=== PATIENT | male | born 1940 | race Caucasian/White ===

== ENCOUNTER 2020-10-22 11:45 | Inpatient (IN) | payer MEDICARE, OTHER, SELFPAY ==
[2020-10-22] VITALS (51 sets, daily range): BP systolic 123–168; BP diastolic 51–110; PULSE 87–144; RESP 20–40; TEMP 36.8–38.2; O2SAT 85–97
--- NOTE | 2020-10-22 11:30 | RT.EKG_ITS ---
APPROVED REPORT Exam: Resting ECG Patient Location: E HR:118 bpm ECG Measurements Heart Rate 118 AXIS CO 166 P 47 QRSd 109 QRS -26 QT 324 T 120 QTc 453 Conclusion Sinus tachycardia Incomplete left bundle branch block
--- NOTE | 2020-10-22 12:00 | DI.CT_ITS ---
EXAM: CT ABDOMEN PELVIS W CLINICAL HISTORY: Diarrhea, fever, malaise, HX IBD TECHNIQUE: COMPARISON: No exams were available for comparison FINDINGS: CT examination of the abdomen and pelvis was performed with bolus infusion 100 cc of Omnipaque 350. Images obtained through the lung bases are unremarkable. Note is made of coronary artery calcificati ons. There appears to be mild hepatic steatosis. No focal hepatic lesion identified. Spleen is unremarka ble. Gallbladder and bile ducts are CT normal. Pancreas appears intact. There are multiple bilateral large renal cysts and a few smaller cysts the kidneys are noted as well. No hydronephrosis or nephrolithiasis. Adrenals are unremarkable in appearance bilaterally. Abdominal aorta and major branch vessels appear intact with mild atheromatous calcifications at multi ple sites. No abdominal aortic aneurysm. No significant abdominal wall hernia seen. No abdominal or pelvic adenopathy. There is is probable wall thickening of the cecum and ascending colon. Mild wall thickening of desce nding colon may be present as well, this is dose somewhat uncertain finding due to under distention d escending colon. No evidence of diverticulitis. No evidence of obstruction. Moderate amount of fec al material noted in the rectum. Urinary bladder is mildly thick-walled and in associated with an enlarged prostate this may represent mild chronic bladder outlet obstruction. IMPRESSION: Findings suggesting colitis, probably involving ascending colon and possibly involving descending co elisabeth. No evidence of obstruction or perforation. Incidental multiple large renal cysts noted. Probable hepatic steatosis. RADIATION DOSE DELIVERED: 1,398.64mGy.cm Total DLP
--- NOTE | 2020-10-22 12:16 | W.ED.GENAD ---
Discharge Plan Disposition Patient Disposition: [facility] INPATIENT Condition: Stable Discharge Details Chief Complaint: Nausea/Vomit/Diar Clinical Impression: Colitis, Fever Primary Care Provider: Rea Macias ED Provider: Deshaun Wooten Home Meds and New Rx's Prescriptions: No Action multivitamin Tablet 1 tab PO DAILY RF: 0 oxazepam 10 mg Capsule 10 mg PO HS PRN PRNRF: 0 amlodipine 5 mg Tablet 5 mg PO DAILY RF: 0 acetaminophen 500 mg Tablet 1,000 mg PO Q6H PRNRF: 0 metoprolol tartrate 50 mg Tablet 50 mg PO HS RF: 0 ibuprofen [IBU-200] 200 mg Tablet 200 mg PO Q6H PRNRF: 0 magnesium 250 mg Tablet 500 mg PO DAILY RF: 0 mupirocin 2 % Ointment 1 applic TOPICAL TID RF: 0 losartan 100 mg Tablet 100 mg PO DAILY RF: 0 cholecalciferol (vitamin D3) 25 mcg (1,000 unit) Capsule 25 mcg PO DAILY RF: 0 omega 3-vym-pkk-fish oil 900-1,400 mg Capsule,Delayed Release(Dr/Ec) 1 cap PO DAILY RF: 0 Medical Decision Making <Rai Daniel MD - Last Filed: 10/22/20 13:53> 72-year-old male states he has a history of irritable bowel disease. He states he ate ribs on this weekend and then has developed 2 days of diarrhea with generalized weakness, poor p.o. intake and lightheadedness. He noted a fever to 101 at home. He arrives ER via EMS with temp 36.8, pulse 119, pressure 147/51. He has a history of irritable bowel disease. Differential diagnosis includes gastroenteritis, dehydration, electrolyte abnormality, peritoneal irritation. Patient IV access established, fluid resuscitation initiated with normal saline. Referred for laboratory analysis and CT images. Laboratories note a white count of 7, hematocrit 44, platelets 171. Sodium 135, potassium 3.7, 99, bicarb 25, BUN 19, creatinine 1.0, glucose 132, slight elevation of ALT of 68, AST 28, total bili 0.8. Troponin negative. CT images show some mild wall thickening of the ascending colon and cecum, consistent with acute colitis. No abscess or free air. Note of renal cysts. Patient started to feel some improvement after fluids. Given his daily dose of amlodipine and trial of liquids by mouth. <Deshaun Wooten DO - Last Filed: 10/22/20 16:38> Patient was signed out to me by my colleague Dr. Rai Daniel. Please refer to his HPI, physical exam assessment and plan. At time of signout pending reassessment after fluids. CT scan shows evidence of colitis, patient has no white count, however he was febrile here. After fluids the patient remains mildly tachycardic at 109. He still has mild abdominal tenderness in the right lower quadrant and right mid abdominal region. No signs of appendicitis on CT per radiology. With the patient's age, risk factors, still mild tachycardia with fever I do feel that he would best benefit from admission and antibiotic treatment. Will give Cipro Flagyl, we have drawn blood cultures. We will do a Covid swab. Still pending PCR. Discussed the case with Dr. Aranda her, he agrees with the assessment and plan. I will place bridging orders on his behalf. I have extensively reviewed the treatment plan with the patient. I have addressed all patient concerns at this time. I have also discussed the plan with the admitting physician and they agree with the current assessment and plan and have agreed to assume responsibility for the patient. All parties demonstrate verbal understanding and agreement with our assessment and plan at this time. The documentation in this chart was dictated using [employer] dictation software. Please excuse any dictation errors. HPI <Rai Daniel MD - Last Filed: 10/22/20 13:53> General Mode of arrival: EMS. Date/Time Provider Initiated Documentation: 10/22/20 12:01. Limitations to Documentation: no limitations. Information obtained by: patient and EMS. History of Present Illness 80 year old M presents to the emergency department with the chief complaint of Weakness and diarrhea, described as moderate, Quality is described as dull, and is localized to the abdomen. Patient reports no radiation. Patient started experiencing this day(s) and it has been constant. No relieving factors improve symptom(s), No exacerbating factors reported . Patient notes fever/chills and weakness; denies chest pain, cough and syncope. Patient did receive the following treatments prior to arrival, none Related Data Home Medications Medication Instructions Recorded Confirmed acetaminophen 1,000 mg PO Q6H PRN 10/22/20 10/22/20 amlodipine 5 mg PO DAILY 10/22/20 10/22/20 cholecalciferol (vitamin D3) 25 mcg PO DAILY 10/22/20 10/22/20 ibuprofen [IBU-200] 200 mg PO Q6H PRN 10/22/20 10/22/20 losartan 100 mg PO DAILY 10/22/20 10/22/20 magnesium 500 mg PO DAILY 10/22/20 10/22/20 metoprolol tartrate 50 mg PO HS 10/22/20 10/22/20 multivitamin 1 tab PO DAILY 10/22/20 10/22/20 mupirocin 1 applic TOPICAL TID 10/22/20 10/22/20 omega 3-fyv-hux-fish oil 1 cap PO DAILY 10/22/20 10/22/20 oxazepam 10 mg PO HS PRN PRN 10/22/20 10/22/20 Allergies Allergy/AdvReac Type Severity Reaction Status Date / Time Penicillins Allergy Unverified 10/22/20 12:01 General Stated Complaint: Nausea/Vomit/Diar NICOLE: 3 Review of Systems <Rai Daniel MD - Last Filed: 10/22/20 13:53> Narrative: Did not take morning medications. Has otherwise recently been well. Received 2 COVID-19 immunizations, relates symptoms began after eating ribs on Wednesday. History of IBS. 6 systems reviewed and otherwise negative PFSH <Rai Daniel MD - Last Filed: 10/22/20 13:53> Social History Smoking risk assessment performed?: No Alcohol Intake: current Alcohol Intake frequency: 0-2 drinks per day Drug use: Never Substance use type: does not use Do you feel safe at home: Yes Do you feel safe in your relationship?: Yes Exam <Rai Daniel MD - Last Filed: 10/22/20 13:53> Narrative Exam Narrative: GEN: awake, alert, oriented 3. Pleasant, well groomed, interactive. HEAD: Normocephalic, atraumatic ENT: Mucous membranes dry, oropharynx unremarkable, External ear exam unremarkable EYES: PERRL, EOMI NECK: Full ROM, no RAYMUNDO, no menigismus CHEST/RESP: Nontender, clear to auscultation bilateral, no wheeze/rhonchi/rales CARDIOVASCULAR: Regular and tachycardic no murmur, rub brigido. 2+ Rad pulse bilateral ABDOMEN: Soft, nontender, no mass. +Bowel sounds EXT: Full ROM, no edema, no rash Neuro: Grossly normal neurologic exam, conversant, interactive. Psych: Speech fluent, thoughts congruent, affect normal Course <Rai Daniel MD - Last Filed: 10/22/20 13:53> Vital Signs Vital signs: Vital Signs Temperature 36.8 C 10/22/20 11:56 Pulse 119 H 10/22/20 11:56 Respiratory Rate 31 H 10/22/20 11:56 Blood Pressure 147/51 H 10/22/20 11:56 Pulse Oximetry 95 10/22/20 11:56 Temperature 36.8 C 10/22/20 11:56 Temperature Source Temporal Artery Scan 10/22/20 11:56 Pulse 119 H 10/22/20 11:56 Respiratory Rate 31 H 10/22/20 11:56 Blood Pressure 147/51 H 10/22/20 11:56 Pulse Oximetry 95 10/22/20 11:56 Oxygen Delivery Method Room Air 10/22/20 11:56 Oxygen Flow Rate 0 10/22/20 11:56 Pain Level 0 10/22/20 11:56 Sign Out <Rai Daniel MD - Last Filed: 10/22/20 13:53> Sign Out Data: Sign Out Comment: Re-eval after fluids Last updated by Rai Daniel MD at 10/22/20 15:02
[2020-10-22 12:30] LABS: Abs Immature Grans 0.03 10^3/uL (0.0-0.06); Absolute Basophil Count 0.01 10^3/uL (0.0-0.2); Absolute Lymphocyte Count 0.58 10^3/uL (1.2-3.4); Absolute Monocyte Count 0.42 10^3/uL (0.1-0.8); Absolute Neutrophil Count 6.17 10^3/uL (1.2-6.7); Basophils % 0.1; HGB 15.1 g/dL (13.5-17.5); Immature Grans % 0.4; MCH 32.8 pg (27.0-33.0); MCHC 34.3 % (32.0-36.0); MCV 95.7 fL (80-95); MPV 11.2 fL (8.0-11.0); Monocytes % 5.8; Neutrophils % 85.7; Nucleated RBC 0 %; Platelet Count 171 10^3/uL (130-400); RDW 11.9 % (11.8-14.1); RDW-SD 41.4 fL; WBC 7.21 10^3/uL (4.4-10.8)
[2020-10-22] MEDS: Normal Saline 1,000 ML 1000 ML IV ×2 (12:44→14:18)
[2020-10-22 13:05] LABS: ALT 68 U/L (16-63); AST 28 U/L (15-37); Alkaline Phosphatase 84 U/L (46-116); Anion Gap 10.9 mmol/L (3-11); BUN 19 mg/dL (7-18); Bilirubin, Total 0.8 mg/dL (0.2-1.0); CO2 25.1 mmol/L (21.0-32.0); Calcium 8.9 mg/dL (8.5-10.1); Chloride 99 mmol/L (98-107); Glucose 132 mg/dL (74-106); Magnesium 1.9 mg/dL (1.8-2.4); Potassium 3.7 mmol/L (3.5-5.1); Sodium 135 mmol/L (136-145); Total Protein 8.5 g/dL (6.4-8.2); Troponin I < 0.05 ng/mL (<0.06)
[2020-10-22] MEDS: Omnipaque 350 MG/ML 100 ML BTL IJ (13:30)
[2020-10-22] MEDS: Normal Saline - Diluent 50 ML VIAL IV (13:31)
[2020-10-22] MEDS: amLODIPine 5 MG TAB PO (14:01)
[2020-10-22] MEDS: Acetaminophen 500 MG TAB (14:24)
[2020-10-22 16:36] LABS: Source Nasal/Nares
[2020-10-22] MEDS: CIPROFLOXACIN 400 MG/200 ML BAG 200 MG IVPB (17:10)
--- NOTE | 2020-10-22 17:21 | W.PM.HP.N ---
Date of service: 10/22/20 Time of Service: 17:21 Assessment and Plan Assessment and plan (1) Colitis: Status: Acute Assessment and plan: started on flagyl and cipro. cdiff pending admitted for IV hydration and further management. (2) Fever: Status: Acute Assessment and plan: cultures pending. (3) Hypertension: Status: Chronic Assessment and plan: continue home medication and monitor. adjust as needed. discussed with Dr Watts History of Present Illness History of Present Illness Chief Complaint: nausea Narrative: 72-year-old male states he has a history of irritable bowel disease. He states he ate ribs on this weekend and then has developed 2 days of diarrhea with generalized weakness, poor p.o. intake and lightheadedness. He noted a fever to 101 at home. He arrives ER via EMS with temp 36.8, pulse 119, pressure 147/51. He has a history of irritable bowel disease. Differential diagnosis includes gastroenteritis, dehydration, electrolyte abnormality, peritoneal irritation. Patient IV access established, fluid resuscitation initiated with normal saline. Referred for laboratory analysis and CT images. Laboratories note a white count of 7, hematocrit 44, platelets 171. Sodium 135, potassium 3.7, 99, bicarb 25, BUN 19, creatinine 1.0, glucose 132, slight elevation of ALT of 68, AST 28, total bili 0.8. Troponin negative. CT images show some mild wall thickening of the ascending colon and cecum, consistent with acute colitis. No abscess or free air. Note of renal cysts. Patient started to feel some improvement after fluids. Review of Systems All systems reviewed & are unremarkable except as noted in HPI and below PFSH Social History Smoking risk assessment performed?: No Alcohol Intake: current Alcohol Intake frequency: 0-2 drinks per day Drug use: Never Substance use type: does not use Do you feel safe at home: Yes Do you feel safe in your relationship?: Yes Meds Home Medications and Allergies Allergies Allergy/AdvReac Type Severity Reaction Status Date / Time Penicillins Allergy Unverified 10/22/20 12:01 Home Medications Medication Instructions Recorded Confirmed Type acetaminophen 1,000 mg PO Q6H PRN 10/22/20 10/22/20 History amlodipine 5 mg PO DAILY 10/22/20 10/22/20 History cholecalciferol (vitamin D3) 25 mcg PO DAILY 10/22/20 10/22/20 History ibuprofen [IBU-200] 200 mg PO Q6H PRN 10/22/20 10/22/20 History losartan 100 mg PO DAILY 10/22/20 10/22/20 History magnesium 500 mg PO DAILY 10/22/20 10/22/20 History metoprolol tartrate 50 mg PO HS 10/22/20 10/22/20 History multivitamin 1 tab PO DAILY 10/22/20 10/22/20 History mupirocin 1 applic TOPICAL TID 10/22/20 10/22/20 History omega 2-fao-fpg-fish oil 1 cap PO DAILY 10/22/20 10/22/20 History oxazepam 10 mg PO HS PRN PRN 10/22/20 10/22/20 History Exam Narrative Exam Narrative: GEN: awake, alert, oriented 3. Pleasant, well groomed, interactive. HEAD: Normocephalic, atraumatic ENT: Mucous membranes dry, oropharynx unremarkable, External ear exam unremarkable EYES: PERRL, EOMI NECK: Full ROM, no RAYMUNDO, no menigismus CHEST/RESP: Nontender, clear to auscultation bilateral, no wheeze/rhonchi/rales CARDIOVASCULAR: Regular and tachycardic no murmur, rub brigido. 2+ Rad pulse bilateral ABDOMEN: Soft, nontender, no mass. +Bowel sounds EXT: Full ROM, no edema, no rash Neuro: Grossly normal neurologic exam, conversant, interactive. Psych: Speech fluent, thoughts congruent, affect normal Results Labs Result diagrams: 10/23/20 07:50 10/22/20 17:05 Labs: Laboratory Results - last 24 hr 10/22/20 10/22/20 10/22/20 11:22 11:22 16:29 WBC 7.21 RBC 4.60 Hgb 15.1 Hct 44.0 MCV 95.7 H MCH 32.8 MCHC 34.3 RDW 11.9 Plt Count 171 MPV 11.2 H Immature Gran % 0.4 Neutrophils % 85.7 Lymphocytes % 8.0 Monocytes % 5.8 Eosinophils % 0.0 Basophils % 0.1 Nucleated RBC % 0 Absolute Neutrophils 6.17 Absolute Lymphocytes 0.58 L Absolute Monocytes 0.42 Absolute Eosinophils 0.00 Absolute Basophils 0.01 Sodium 135 L Potassium 3.7 Chloride 99 Carbon Dioxide 25.1 Anion Gap 10.9 BUN 19 H Creatinine 1.0 Estimated GFR/1.73 m2 >= 60.00 Glucose 132 H Calcium 8.9 Magnesium 1.9 Total Bilirubin 0.8 AST 28 ALT 68 H Alkaline Phosphatase 84 Troponin I < 0.05 Total Protein 8.5 H Albumin 4.0 COVID-19 Source Nasal/nares Last Vital Signs Temp 37.5 C 10/22/20 16:24 Pulse 110 H 10/22/20 16:24 Resp 40 H 10/22/20 16:50 BP 139/82 10/22/20 16:24 Pulse Ox 96 10/22/20 16:50 COVID-19 Screening Have you, or household traveled for leisure in last 14 days?: No Had IN PERSON contact w/suspected or confirmed C-19 person: No
--- NOTE | 2020-10-22 17:28 | NUR.NOTE ---
Nursing Note: Brenna [phone]
[2020-10-22 18:09] LABS: Anion Gap 10.2 mmol/L (3-11); BUN 15 mg/dL (7-18); CO2 26.8 mmol/L (21.0-32.0); CREATININE 0.9 mg/dL (0.70-1.30); Calcium 8.4 mg/dL (8.5-10.1); Chloride 102 mmol/L (98-107); Glucose 115 mg/dL (74-106); Sodium 139 mmol/L (136-145)
[2020-10-22] MEDS: Normal Saline 1,000 ML 150 ML IV (18:57)
[2020-10-22] MEDS: Ibuprofen 200 MG TAB PO (18:57)
[2020-10-22 19:42] LABS: COVID-19 PCR Negative (Negative)
[2020-10-22] MEDS: metroNIDAZOLE 500 MG/100 ML BAG 100 MG IVPB (22:55)
[2020-10-22] MEDS: Metoprolol 50 MG TAB PO (22:56)
[2020-10-22] MEDS: Oxazepam 10 MG CAP PO (22:56)
[2020-10-22] MEDS: Melatonin 3 MG TAB 6 MG PO (22:56)
[2020-10-23] MEDS: Normal Saline 1,000 ML 150 ML IV (02:15)
[2020-10-23 02:35] VITALS: BP 148/88; PULSE 85; RESP 16; TEMP 37.4; O2SAT 94
[2020-10-23] MEDS: metroNIDAZOLE 500 MG/100 ML BAG 100 MG IVPB ×2 (03:54→09:56)
[2020-10-23] MEDS: CIPROFLOXACIN 400 MG/200 ML BAG 200 MG IVPB (05:16)
[2020-10-23 06:38] LABS: C Diff PCR Negative (Negative)
[2020-10-23 07:32] VITALS: BP 140/83; PULSE 91; RESP 18; TEMP 36.2; O2SAT 91
[2020-10-23 08:17] LABS: Abs Immature Grans 0.01 10^3/uL (0.0-0.06); Absolute Basophil Count 0.01 10^3/uL (0.0-0.2); Absolute Eosinophil Count 0.02 10^3/uL (0.0-0.7); Absolute Monocyte Count 0.52 10^3/uL (0.1-0.8); Absolute Neutrophil Count 3.67 10^3/uL (1.2-6.7); Basophils % 0.2; Eosinophils % 0.4; HCT 37.4 % (40.0-50.0); HGB 12.6 g/dL (13.5-17.5); Immature Grans % 0.2; Lymphocytes % 17.5; MCH 32.7 pg (27.0-33.0); MCHC 33.7 % (32.0-36.0); MCV 97.1 fL (80-95); MPV 10.6 fL (8.0-11.0); Monocytes % 10.1; Neutrophils % 71.6; Nucleated RBC 0 %; Platelet Count 131 10^3/uL (130-400); RBC 3.85 10^6/uL (4.36-5.78); RDW 12.1 % (11.8-14.1); RDW-SD 43.8 fL; WBC 5.13 10^3/uL (4.4-10.8)
[2020-10-23] MEDS: Cholecalciferol (Vitamin D3) 1,000 UNIT TAB 1000 UNITS PO (08:22)
[2020-10-23] MEDS: Omega-3 Fatty Acids 1000 MG CAP PO (08:22)
[2020-10-23] MEDS: Multivitamin TAB 1 TAB PO (08:22)
[2020-10-23] MEDS: Losartan 50 MG TAB 100 MG PO (08:22)
[2020-10-23] MEDS: Magnesium Oxide 400 MG TAB PO (08:22)
[2020-10-23] MEDS: amLODIPine 5 MG TAB PO (08:22)
--- NOTE | 2020-10-23 10:04 | INITIAL_ITS ---
- If Service Date Differs Date of service: 10/23/20 Time of Service: 10:04 Care Management Initial Assess REASON FOR HOSPITALIZATION:: Colitis PAST MEDICAL HISTORY/PAST SURGICAL HISTORY:: No significant medical history listed. PREVIOUS FUNCTIONAL STATUS/SOCIAL/FAMILY SUPPORTS:: Robert lives in [place] with his , Brenna. He does not have children, but his has two adult children, and one grandchild. He is retired now, but worked in sales and management. He enjoys traveling, especially to [place] where he has relatives that he visits. He likes to cook, as well. He is independent at baseline. CURRENT FUNCTIONAL STATUS:: Robert was lying in bed when CM met with him. He reported that he is feeling better today, but still has diarrhea. He stated that he would like to return home, if possible. He stated that he does not have any services, and does not feel that he needs anything at home, as he is independent. He discussed how he likes to cook, and feels that he may need to lose weight. CM offered to have nutrition meet with him, which he declined. He reported that he is in contact with his , and he will update her once he knows the plan. CM will continue to follow. ADVANCE DIRECTIVES:: On file, Brenna () listed as agent. Has patient been provided with info about the portal/API?: Yes Did the patient sign up for the portal?: No CODE STATUS:: Full Code INSURANCE COVERAGE / FINANCIAL ISSUES:: [facility]/ [facility] CURRENT HOME/COMMUNITY SERVICES/EQUIPMENT:: No current services or equipment. PRIMARY CARE PHYSICIAN:: Dr. Heather Macias POTENTIAL DISCHARGE NEEDS:: Evaluations for further needs, follow up a ppointments PATIENT/FAMILY EDUCATION NEEDS:: Review discharge instructions regarding activity levels and medications, discussion of self care needs and goals of care. ANTICIPATED BARRIERS TO DISCHARGE:: None identified. TRANSPORTATION:: Via private vehicle by his . PLAN:: Anticipate Robert will return home via private vehicle when medically cleared. His will drive him home. He will follow up with his PCP and discharge plan of care. CM will continue to follow.
[2020-10-23 10:52] VITALS: BP 133/75; PULSE 96; RESP 18; TEMP 37; O2SAT 95
[2020-10-23] MEDS: Normal Saline Flush 10 ML SYR IVP (11:06)
--- NOTE | 2020-10-23 12:01 | DSE_ITS ---
Documented by User: Anna Gomez NP 10/23/20 12:16 Date of service: 10/23/20 Time of Service: 12:01 DS: Diagnosis Discharge Diagnosis (1) Colitis: Status: Acute (2) Fever: Status: Acute (3) Hypertension: Status: Chronic Discharge Plan Disposition Patient Disposition: HOME Condition: Stable Discharge Details Reason For Visit: COLITIS Admit Date/Time: 10/22/20 16:35 Admit Provider: Rodger Watts Attending Provider: Rodger Watts Primary Care Provider: Rea Macias Hospital Course Hospital Course: This is a 80 year old male with history of irritable bowel disease who presented to the ED with c/o diarrhea, weakness and fever. He attributes his symptoms to eating ribs over the weekend. His Cdiff was negative and labs unremarkable. he was given IV fluids and started on cipro and flagyl with improvement in his symptoms. he remained afebrile overnight and was tolerating PO fluids well. his diarrhea was improving. he is hemodynamicaly stable and safe for discharge to home. he will continue 5 days of cipro/flagyl and will f/u if symptoms worsen. discharge discussed with DR Watts Home Meds and New Rx's Prescriptions: New ciprofloxacin HCl [Cipro] 500 mg tablet 500 mg PO BID Qty: 9 RF: 0 metronidazole [Flagyl] 500 mg tablet 500 mg PO TID Qty: 14 RF: 0 mupirocin 2 % ointment 1 applic topical BID Qty: 15 RF: 0 Continued multivitamin Tablet 1 tab PO DAILY RF: 0 oxazepam 10 mg Capsule 10 mg PO HS PRN PRNRF: 0 amlodipine 5 mg Tablet 5 mg PO DAILY RF: 0 acetaminophen 500 mg Tablet 1,000 mg PO Q6H PRNRF: 0 metoprolol tartrate 50 mg Tablet 50 mg PO HS RF: 0 ibuprofen [IBU-200] 200 mg Tablet 200 mg PO Q6H PRNRF: 0 magnesium 250 mg Tablet 500 mg PO DAILY RF: 0 mupirocin 2 % Ointment 1 applic TOPICAL TID RF: 0 losartan 100 mg Tablet 100 mg PO DAILY RF: 0 cholecalciferol (vitamin D3) 25 mcg (1,000 unit) Capsule 25 mcg PO DAILY RF: 0 omega 0-cqj-hhi-fish oil 900-1,400 mg Capsule,Delayed Release(Dr/Ec) 1 cap PO DAILY RF: 0 Discharge Instructions Instructions: Colitis (ED) Additional Instructions: finish antibiotic as directed. drink at least 6-8 glasses of water daily to stay well hydrated. return sooner for new or worsening symptoms. Stand Alone Forms: Nursing Discharge Form Referrals: Rea Macias [Primary Care Provider] - (Call for follow up appt for one to two weeks) Activity:: Activity as Tolerated Equipment/Supplies:: No Equipment Needed Diet:: As Tolerated Discharge Orders Discharge Orders: Discharge Order (Routine); Ordered 10/23/20 Ordered By: Anna Gomez DS: Summary Time Spent with Patient providing and/or coordinating discharge services: Less than 30 minutes Status at Discharge Functional status at discharge: independent ambulation Overall status at discharge: patient is progressing back to baseline Mental Status: mental status grossly normal Speech and Movement: speech and movement normal Mood: congruent mood Affect: normal affect Exam Narrative Exam Narrative: GEN: awake, alert, oriented 3. Pleasant, well groomed, interactive. HEAD: Normocephalic, atraumatic ENT: Mucous membranes moist, oropharynx unremarkable NECK: supple, no JVD CHEST/RESP: clear to auscultation bilateral, respirations even and unlabored CARDIOVASCULAR: Regular rate and rhythm no murmur, ABDOMEN: round, Soft, nontender, no masses appreciated. +Bowel sounds EXT: Full ROM, no edema, no rash Neuro: Grossly normal neurologic exam, conversant, interactive. Psych: mood and affect normal Psych Mental Status: mental status grossly normal Speech and Movement: speech and movement normal Mood: congruent mood Affect: normal affect DS: Data Vitals/I&O Vitals and I&O: Vital Signs Temperature 37.0 C 10/23/20 10:52 Temperature Source Tympanic 10/23/20 10:52 Pulse 96 H 10/23/20 10:52 Pulse Rhythm Regular 10/23/20 11:33 Pulse 106 H 10/22/20 17:20 Respiratory Rate 18 10/23/20 10:52 Respiratory Effort Non-Labored 10/23/20 11:33 Respiratory Depth Normal 10/23/20 11:33 Respiratory Pattern Normal 10/23/20 11:33 Blood Pressure 133/75 10/23/20 10:52 Blood Pressure Mean 87 10/22/20 17:18 Pulse Oximetry 95 10/23/20 10:52 Oxygen Delivery Method Room Air 10/23/20 10:52 Oxygen Flow Rate 0 10/23/20 10:52 Pain Level 0 10/23/20 02:35 Intake & Output 10/22/20 10/23/20 10/23/20 23:59 11:59 23:59 Intake Total 1500 / 1600 0 / 1920 Balance 1500 / 1600 1919 / 192 Weight 90.718 kg 105.8 kg Intake: IV 1000 / 1100 1200 / 1200 Oral 500 / 500 720 / 720 Other: Urine Color Yellow Urine Appearance Clear Clear Stool Size Moderate Stool Characteristics Liquid Liquid Brown Voiding Methods Toilet Diaper Incontinent Data Completed and Pending Labs on day of discharge: Labs from last 24 hours 10/23/20 10/23/20 10/22/20 07:50 02:30 17:05 WBC 5.13 RBC 3.85 L Hgb 12.6 L D Hct 37.4 L MCV 97.1 H MCH 32.7 MCHC 33.7 RDW 12.1 Plt Count 131 MPV 10.6 Immature Gran % 0.2 Neutrophils % 71.6 Lymphocytes % 17.5 Monocytes % 10.1 Eosinophils % 0.4 Basophils % 0.2 Nucleated RBC % 0 Absolute Neutrophils 3.67 Absolute Lymphocytes 0.90 L Absolute Monocytes 0.52 Absolute Eosinophils 0.02 Absolute Basophils 0.01 Sodium 139 Potassium 4.0 Chloride 102 Carbon Dioxide 26.8 Anion Gap 10.2 BUN 15 Creatinine 0.9 Estimated GFR/1.73 m2 >= 60.00 Glucose 115 H Calcium 8.4 L Magnesium Total Bilirubin AST ALT Alkaline Phosphatase Troponin I Total Protein Albumin Stl C.difficile Tox PCR Negative COVID-19 Source SARS-CoV-2 (PCR) 10/22/20 10/22/20 10/22/20 16:29 16:22 11:22 WBC 7.21 RBC 4.60 Hgb 15.1 Hct 44.0 MCV 95.7 H MCH 32.8 MCHC 34.3 RDW 11.9 Plt Count 171 MPV 11.2 H Immature Gran % 0.4 Neutrophils % 85.7 Lymphocytes % 8.0 Monocytes % 5.8 Eosinophils % 0.0 Basophils % 0.1 Nucleated RBC % 0 Absolute Neutrophils 6.17 Absolute Lymphocytes 0.58 L Absolute Monocytes 0.42 Absolute Eosinophils 0.00 Absolute Basophils 0.01 Sodium Potassium Chloride Carbon Dioxide Anion Gap BUN Creatinine Estimated GFR/1.73 m2 Glucose Calcium Magnesium Total Bilirubin AST ALT Alkaline Phosphatase Troponin I Total Protein Albumin Stl C.difficile Tox PCR Cancelled COVID-19 Source Nasal/nares SARS-CoV-2 (PCR) Negative 10/22/20 11:22 WBC RBC Hgb Hct MCV MCH MCHC RDW Plt Count MPV Immature Gran % Neutrophils % Lymphocytes % Monocytes % Eosinophils % Basophils % Nucleated RBC % Absolute Neutrophils Absolute Lymphocytes Absolute Monocytes Absolute Eosinophils Absolute Basophils Sodium 135 L Potassium 3.7 Chloride 99 Carbon Dioxide 25.1 Anion Gap 10.9 BUN 19 H Creatinine 1.0 Estimated GFR/1.73 m2 >= 60.00 Glucose 132 H Calcium 8.9 Magnesium 1.9 Total Bilirubin 0.8 AST 28 ALT 68 H Alkaline Phosphatase 84 Troponin I < 0.05 Total Protein 8.5 H Albumin 4.0 Stl C.difficile Tox PCR COVID-19 Source SARS-CoV-2 (PCR) 10/22/20 16:55 Blood Blood Culture - Pending 10/22/20 16:55 Blood Blood Culture - Pending Preliminary micro results at discharge 10/22/20 16:55 Blood Culture - Pending Blood 10/22/20 16:55 Blood Culture - Pending Blood [facility] Social History Smoking risk assessment performed?: No Alcohol Intake: current Alcohol Intake frequency: 0-2 drinks per day Drug use: Never Substance use type: does not use Do you feel safe at home: Yes Do you feel safe in your relationship?: Yes Documented by User: Rodger Watts MD 10/23/20 13:25 Discharge Plan Disposition Patient Disposition: HOME Condition: Stable Discharge Details Reason For Visit: COLITIS Admit Date/Time: 10/22/20 16:35 Admit Provider: Rodger Watts Attending Provider: Rodger Watts Primary Care Provider: Rea Macias Hospital Course Hospital Course: This is a 80 year old male with history of irritable bowel disease who presented to the ED with c/o diarrhea, weakness and fever. He attributes his symptoms to eating ribs over the weekend. His Cdiff was negative and labs unremarkable. he was given IV fluids and started on cipro and flagyl with improvement in his symptoms. he remained afebrile overnight and was tolerating PO fluids well. his diarrhea was improving. he is hemodynamicaly stable and safe for discharge to home. he will continue 5 days of cipro/flagyl and will f/u if symptoms worsen. discharge discussed with DR Watts Home Meds and New Rx's Prescriptions: New ciprofloxacin HCl [Cipro] 500 mg tablet 500 mg PO BID Qty: 9 RF: 0 metronidazole [Flagyl] 500 mg tablet 500 mg PO TID Qty: 14 RF: 0 mupirocin 2 % ointment 1 applic topical BID Qty: 15 RF: 0 Continued multivitamin Tablet 1 tab PO DAILY RF: 0 oxazepam 10 mg Capsule 10 mg PO HS PRN PRNRF: 0 amlodipine 5 mg Tablet 5 mg PO DAILY RF: 0 acetaminophen 500 mg Tablet 1,000 mg PO Q6H PRNRF: 0 metoprolol tartrate 50 mg Tablet 50 mg PO HS RF: 0 ibuprofen [IBU-200] 200 mg Tablet 200 mg PO Q6H PRNRF: 0 magnesium 250 mg Tablet 500 mg PO DAILY RF: 0 mupirocin 2 % Ointment 1 applic TOPICAL TID RF: 0 losartan 100 mg Tablet 100 mg PO DAILY RF: 0 cholecalciferol (vitamin D3) 25 mcg (1,000 unit) Capsule 25 mcg PO DAILY RF: 0 omega 8-ftd-iyb-fish oil 900-1,400 mg Capsule,Delayed Release(Dr/Ec) 1 cap PO DAILY RF: 0 Discharge Instructions Instructions: Colitis (ED) Additional Instructions: finish antibiotic as directed. drink at least 6-8 glasses of water daily to stay well hydrated. return sooner for new or worsening symptoms. Stand Alone Forms: Nursing Discharge Form Referrals: Rea Macias [Primary Care Provider] - (Call for follow up appt for one to two weeks) Activity:: Activity as Tolerated Equipment/Supplies:: No Equipment Needed Diet:: As Tolerated Discharge Orders Discharge Orders: Discharge Order (Routine); Ordered 10/23/20 Ordered By: Anna Gomez [facility] Social History Smoking risk assessment performed?: No Alcohol Intake: current Alcohol Intake frequency: 0-2 drinks per day Drug use: Never Substance use type: does not use Do you feel safe at home: Yes Do you feel safe in your relationship?: Yes
--- NOTE | 2020-10-23 12:19 | PDOC.CMDIS ---
- If Service Date Differs Date of service: 10/23/20 Time of Service: 12:19 LACE Index Scoring Tool - Questions: Length of Stay (in days): 2 Acuity (Admit via E.D.?): Yes E.D. Visits: 1 - Answers: Total Score: 6 Risk of Readmission: Low Risk Care Management Discharge Reason for Hospitalization: Colitis Discharge Plan: Robert will return home today with no new services. His will drive him home via private vehicle. He will follow up with his PCP and discharge plan of care. He is happy to return home. Patient/Family Education Needs: Review discharge instructions regarding activity levels and medications, discussion of self care needs and goals of care.
== END 2020-10-23 14:17 | disposition home or self-care (01) | DRG 392 ==
LOC: ER 17:30 → MS 17:40
PROVIDERS: Emergency Medicine; Nurse Practitioner Acute Care; Admitting Provider Family Medicine; Emergency Provider Student in an Organized Health Care Education/Training Program; PCP Family Medicine; Visit Provider Family Medicine
DX: K52.9 Noninfective gastroenteritis and colitis, unspecified (principal); I10 Essential (primary) hypertension; R50.9 Fever, unspecified; K58.9 Irritable bowel syndrome, unspecified
CPT/HCPCS: 36410; 36415; 36416; 80048; 80053; 82962; 87040; 87493; 87635; 93005; 96361; 96365; 99217; 99223; 99285; 74177; 83630; 83735; 84484; 85025; 93010; 99284; J0744; J3490

== ENCOUNTER 2021-02-07 10:25 | Outpatient (CLI) | payer MEDICARE, OTHER, SELFPAY ==
--- NOTE | 2021-02-07 | DI.RAD_ITS ---
Exam(s) XR FOOT RT COMPLETE EXAM: XR FOOT RT COMPLETE CLINICAL HISTORY: PAIN IN RT FOOT M79.671 TECHNIQUE: COMPARISON: No exams were available for comparison FINDINGS: Three views were obtained. Bony alignment appears within normal limits. There is severe degenerativ e change at the 1st MTP joint with marked loss of the cartilaginous joint space, deformity of the sub chondral bone with sclerotic changes, and prominent marginal osteophytes. Mild south articular degenerative changes also noted. 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 RADIATION DOSE DELIVERED: Total DLP
--- OUTSIDE RECORDS SUMMARY | 2021-02-07 10:25 | XMS_ITS | Encounter Summary ---
:1940 Author Organization Department of [facility] Address [address] [place] [id number] Support Name Relationship Address Phone HILARIO QUINN Unavailable [address] [place] [address] HILARIO QUINN Unavailable [address] [place] [address] Selected Encounter This section includes the information on record at [place] for the Encounter. Date/Time Encounter Type Encounter Description Reason Provider Source December 30, 2020 02:46 Outpatient Encounter ADMIN PAT ACTIVTIES PM (MASNONCT) [facility] Encounter Template Text not used by [facility] Encounter Notes: All associated encounter notes This section contains the clinical notes associated to the Encounter. Date/Time Encounter Note(s) Provider Source December 30, 2020 02:46 PM PRIMARY CARE ADMINISTRATIVE NOTE: KENTRELL COELLO LOCAL TITLE: Administrative Note/Primary Care [facility] STANDARD TITLE: PRIMARY CARE ADMINISTRATIVE NOTE DATE OF NOTE: DECEMBER 30, 2020@14:46 ENTRY DATE: DECEMBER 30, 2020@14:47:01 AUTHOR: KENTRELL COELLO EXP COSIGNER: URGENCY: STATUS: COMPLETED Administrative Note/Primary Care Has ADDE NDA 1st attempt to contact veter an to see if he would like to be assigned to [facility] or [facility]. is on [address] Left generic messaged asking him to contact me. Provided my extension [phone] /es/ KENTRELL COELLO Signed: 12/30/2020 14:47 12/31/2020 ADDENDUM STATUS: COMPLETED called me back. He does not want to shane nge his provider from [facility] at this [facility]. He may talk to [facility] to see if he can keep current provider. If he decides to be assigned he would like Pb. He will get in touch with me once he make a decision /keo/ KENTRELL COELLO Signed: 12/31/2020 10:23
--- OUTSIDE RECORDS SUMMARY | 2021-02-07 10:25 | XMS_ITS | Continuity of Care Document ---
:1940 Author Organization [facility] Care Team Providers Name Role Phone [facility] Unavailable Unavailable Encounters Combined list of: 1) Encounters from [facility] facilities going back up to thelast 18 months, not all [facility] inpatient encounters are included; 2) Encounters from the [facility] of Defense facilities going backup to 280 months. Location Location Encounter Encounter Reason Attending ADM DC Stat us Disposition Source Details Type Number For Provider Date Date Visit Outpatient [id number] 12/30 MARITZA Reinoso Encounter [id number] [facility]
== END 2021-02-07 10:45 ==
PROVIDERS: PCP Family Medicine; Visit Provider Physician Assistant Medical
DX: M19.071 Primary osteoarthritis, right ankle and foot (principal)
CPT/HCPCS: 73630